=== PATIENT | male | born 1955 ===

== ENCOUNTER 2024-10-07 13:50 | Outpatient (CLI) | payer MEDICARE, SELFPAY ==
[2024-10-09 14:16] LABS: PSA, Ultrasensitive <0.01 ng/mL (<= 6.5)
[2024-10-11 03:03] LABS: Testosterone, Total <7.0 ng/dL (240-950)
== END 2024-10-07 13:51 | disposition home or self-care (01) ==
LOC: LBO 13:55
PROVIDERS: PCP Radiology Radiation Oncology; Visit Provider Radiology Radiation Oncology
DX: C61 Malignant neoplasm of prostate (principal)
CPT/HCPCS: 36415; 84153; 84403

== ENCOUNTER 2024-10-24 01:42 | Outpatient (CLI) | payer MEDICARE, SELFPAY ==
--- NOTE | 2024-10-24 | DI.DEXA_ITS ---
Exam(s) XR DEXA BONE DENSITY W/WO [place] EXAM: XR DEXA BONE DENSITY W/WO [place] CLINICAL HISTORY: PROSTATE CA,C61,TECHNICAL DIRECTOR USE SYSTEMIC STEROIDS,Z79.52,ON ADT,SCREENING TECHNIQUE: Routine DEXA evaluation of the lumbar spine, hip, or forearm. COMPARISON: No exams were available for comparison FINDINGS: Performed on a Hologic unit. Lateral image: No compression fracture evident. Lumbar Spine total T-score: 2.0 Hip total T-score:0.3 Independent reading at the level of the femoral neck yields T-score of -0.2 Forearm total T-score: 2.2 IMPRESSION: Bone mineral density measures in the normal range. Fracture risk is low. Note: Any spine fracture indicates 5x risk for subsequent spine fracture and 2x risk for subsequent h ip fracture. World Health Organization criteria for BMD interpretation classify patients: Normal...... T- Score at or above -1.0 Osteopenic... T- Score between -1.0 and -2.5 Osteoporosis... T-Score at or below -2.5
== END 2024-10-24 02:02 ==
LOC: DI 01:43
PROVIDERS: PCP Radiology Radiation Oncology; Visit Provider Radiology Radiation Oncology
DX: Z79.52 Long term (current) use of systemic steroids (principal); C61 Malignant neoplasm of prostate
CPT/HCPCS: 77080

== ENCOUNTER 2024-11-12 15:51 | Outpatient (CLI) | payer MEDICARE, SELFPAY ==
[2024-11-13 17:38] LABS: PSA, Ultrasensitive <0.01 ng/mL (<= 6.5)
[2024-11-18 14:41] LABS: Testosterone, Total <7.0 ng/dL (240-950)
== END 2024-11-12 15:52 | disposition home or self-care (01) ==
LOC: LBO 15:54
PROVIDERS: PCP Radiology Radiation Oncology; Visit Provider Radiology Radiation Oncology
DX: C61 Malignant neoplasm of prostate (principal)
CPT/HCPCS: 36415; 84153; 84403

== ENCOUNTER → 2025-03-24 08:21 | Outpatient (BNVA) | payer MEDICARE, SELFPAY | PROVIDERS: PCP Radiology Radiation Oncology; Referring Provider Physician Assistant Medical; Visit Provider Psychiatry & Neurology Neurology | DX: M79.605 Pain in left leg (principal); R20.0 Anesthesia of skin; I10 Essential (primary) hypertension | CPT/HCPCS: 99205; 95886; 95887; 95908 ==

== ENCOUNTER 2025-04-30 15:12 | Outpatient (CLI) | payer MEDICARE, SELFPAY | END 2025-04-30 15:13 | disposition home or self-care (01) | LOC: LBO 15:24 | PROVIDERS: PCP Radiology Radiation Oncology; Visit Provider Radiology Radiation Oncology | DX: C61 Malignant neoplasm of prostate (principal) | CPT/HCPCS: 36415; 84153; 84403 ==